=== PATIENT | female | born 1985 | race Caucasian/White ===

== ENCOUNTER 2020-08-16 17:13 | Emergency (ER) | payer OTHER ==
[2020-08-16] MEDS ORDERED: KETOROLAC 30 MG/ML INJ ONE (17:52)
[2020-08-16] MEDS ORDERED: HYDROCODONE/APAP 10/325 TAB ONE (17:52)
--- NOTE | 2020-08-16 18:35 | RAD REPORT ---
EXAM DESCRIPTION: RAD - Ankle Left 3 View - 08/16/2020 6:28 pm CLINICAL HISTORY: PAIN COMPARISON: No comparisons FINDINGS: No acute fracture or dislocation seen.
--- NOTE | 2020-08-16 18:55 | ER ---
Nurse's Notes [facility] Name: Belkys Preston Age: 35 yrs Sex: Female : 1985 Arrival Date: 08/16/2020 Time: 17:16 Bed 20 Private MD: Diagnosis: Fall on same level from slipping, tripping and stumbling without subsequent striking against object;Pain in left ankle and joints of left foot Presentation: 08/16 17:33 Chief complaint: Patient states: was on her knee scooter and somehow fell to the ground sv landing on her left ankle/foot. Pt had Achilles repair surgery 3 weeks ago. c/o pain about an hour ago. Care prior to arrival: Pressure bandage applied. Mechanism of Injury: Fall from standing position. Trauma event details: Injury occurred in the [facility], Injury occurred: at home. Injury occurred: August 16, 2020. 17:33 Acuity: AMY 4 sv 17:33 Method Of Arrival: Wheelchair sv 17:46 Initial Sepsis Screen: Does the patient meet any 2 criteria? No. Patient's initial jd3 sepsis screen is negative. Does the patient have a suspected source of infection? No. Patient's initial sepsis screen is negative. Risk Assessment: Do you want to hurt yourself or someone else? Patient reports no desire to harm self or others. Onset of symptoms was August 16, 2020. 17:47 Coronavirus screen: At this time, the client does not indicate any symptoms associated jd3 with coronavirus-19. Ebola Screen: Patient negative for fever greater than or equal to 101.5 degrees Fahrenheit, and additional compatible Ebola Virus Disease symptoms. Trauma Activation: Not Applicable Physician: ED Physician; Name: ; Notified At: ; Arrived At: Physician: General Surgeon; Name: ; Notified At: ; Arrived At: Physician: Radiology; Name: ; Notified At: ; Arrived At: Physician: Respiratory; Name: ; Notified At: ; Arrived At: Physician: Lab; Name: ; Notified At: ; Arrived At: Historical: - Allergies: 17:35 No Known Allergies; sv - PSHx: 17:35 Novasure; sv - Immunization history:: Client reports having NOT received the Covid vaccine. - Social history:: Smoking status: Patient denies any tobacco usage or history of. Screenin:47 Abuse screen: Denies threats or abuse. Nutritional screening: No deficits noted. jd3 Tuberculosis screening: No symptoms or risk factors identified. Fall Risk Ambulatory Aid- None/Bed Rest/Nurse Assist (0 pts). Gait- Normal/Bed Rest/Wheelchair (0 pts) Mental Status- Oriented to own ability (0 pts). Total Gaffney Fall Scale indicates No Risk (0-24 pts). Assessment: 17:44 General: Appears in no apparent distress. uncomfortable, Behavior is calm, cooperative, jd3 appropriate for age. Pain: Complains of pain in left ankle Quality of pain is described as sharp, shooting, tender. Neuro: Level of Consciousness is awake, alert, obeys commands, Oriented to person, place, time, situation. Cardiovascular: Denies chest pain, Capillary refill < 3 seconds Patient's skin is warm and dry. Respiratory: Airway is patent Respiratory effort is even, unlabored, Respiratory pattern is regular, symmetrical, Denies cough, shortness of breath. GI: No signs and/or symptoms were reported involving the gastrointestinal system. : No signs and/or symptoms were reported regarding the genitourinary system. EENT: No signs and/or symptoms were reported regarding the EENT system. Derm: Skin is intact, Skin is dry, Skin is normal, Skin temperature is warm Bruising that is dark purple, yellow, on left ankle and left foot. Musculoskeletal: Circulation, motion, and sensation intact. Range of motion: limited in left ankle. 18:30 Reassessment: Patient appears in no apparent distress at this time. No changes from jd3 previously documented assessment. Patient and/or family updated on plan of care and expected duration. Pain level reassessed. Patient is alert, oriented x 3, equal unlabored respirations, skin warm/dry/pink. 19:10 Reassessment: Patient appears in no apparent distress at this time. Patient and/or ad5 family updated on plan of care and expected duration. Pain level reassessed. Patient is alert, oriented x 3, equal unlabored respirations, skin warm/dry/pink. Patient states symptoms have improved. Vital Signs: 19:58 BP 103 / 59; Pulse 91; Resp 18 S; Pulse Ox 99% on R/A; ad5 ED Course: 17:16 Patient arrived in ED. rg4 17:17 Rebekah Mckeon FNP-C is [facility]. kb 17:17 Pedro Kaufman MD is Attending Physician. kb 17:25 Niles Martinez, RN is Primary Nurse. jd3 17:35 Triage completed. sv 17:35 Arm band placed on. sv 17:46 Patient has correct armband on for positive identification. Bed in low position. Call jd3 light in reach. Side rails up X 1. Adult w/ patient. Pulse ox on. NIBP on. 18:29 Ankle Left 3 View XRAY In Process Unspecified. EDMS 19:59 No provider procedures requiring assistance completed. Patient did not have IV access ad5 during this emergency room visit. Administered Medications: 17:38 Drug: [place] (HYDROcodone-acetaminophen) 10 mg-325 mg 1 tabs Route: PO; jd3 19:59 Follow up: Response: No adverse reaction; Pain is decreased ad5 17:38 Drug: Ketorolac 30 mg Route: IM; Site: left gluteus; jd3 19:59 Follow up: Response: No adverse reaction ad5 Outcome: 18:54 Discharge ordered by MD. kb 19:59 Discharged to home via wheelchair, with significant other. ad5 19:59 Condition: stable 19:59 Discharge instructions given to patient, Instructed on discharge instructions, follow up and referral plans. medication usage, Demonstrated understanding of instructions, follow-up care, medications, Prescriptions given X 1. 20:00 Patient left the ED. ad5 Signatures: Dispatcher [employer] EDUT Rebekah Mckeon FNP-C FNP-Ckb Verde, Stephanie, RN RN sv Garcia, Rubi rg4 Niles Martinez RN RN Bryce Burgos ad5
--- NOTE | 2020-08-16 18:55 | EDPHYS ---
Physician Documentation [facility] Name: Belkys Preston Age: 35 yrs Sex: Female : 1985 Arrival Date: 08/16/2020 Time: 17:16 Bed 20 Private MD: ED Physician Pedro Kaufman HPI: 08/16 23:22 This 35 yrs old Female presents to ER via Wheelchair with complaints of Fall kb Injury. 23:22 Details of fall: The patient fell from an upright position. Onset: The symptoms/episode kb began/occurred just prior to arrival. Associated injuries: The patient sustained left Achilles. Severity of symptoms: At their worst the symptoms were moderate, in the emergency department the symptoms are unchanged. The patient has not experienced similar symptoms in the past. The patient has been recently seen by a physician:. Pt reports she had an achilles repair 3 weeks ago, had sutures removed today. Was standing using her scooter and somehow fell landing on left ankle. reports pain to posterior left ankle since fall and is concerned that she opened surgical site back up. Historical: - Allergies: 17:35 No Known Allergies; sv - PSHx: 17:35 Novasure; sv - Immunization history:: Client reports having NOT received the Covid vaccine. - Social history:: Smoking status: Patient denies any tobacco usage or history of. ROS: 23:22 Constitutional: Negative for fever, chills, and weight loss. kb 23:22 MS/extremity: Positive for pain, of the left Achilles. 23:22 All other systems are negative. Exam: 23:22 Constitutional: This is a well developed, well nourished patient who is awake, alert, kb and in no acute distress. Head/Face: Normocephalic, atraumatic. ENT: Moist Mucous membranes Respiratory: Respirations even and unlabored. No increased work of breathing, no retractions or nasal flaring. Neuro: Awake and alert, GCS 15, oriented to person, place, time, and situation. Moves all extremities. Normal gait. Psych: Awake, alert, with orientation to person, place and time. Behavior, mood, and affect are within normal limits. 23:22 Musculoskeletal/extremity: Extremities: grossly normal except: noted in the left Achilles: pain, tenderness, ROM: limited active range of motion due to pain, Circulation is intact in all extremities. Sensation intact. Weight bearing: is unable to bear weight, ROM limited due to recent surgery, still nonweightbearing since recent surgery. 23:22 Skin: surgical incision to posterior left ankle that is intact. Steri-strips in place. Vital Signs: 19:58 BP 103 / 59; Pulse 91; Resp 18 S; Pulse Ox 99% on R/A; ad5 MDM: 17:20 Patient medically screened. kb 18:42 Data reviewed: vital signs, nurses notes. Data interpreted: Pulse oximetry: on room air kb is 100 %. Interpretation: normal. Counseling: I had a detailed discussion with the patient and/or guardian regarding: the historical points, exam findings, and any diagnostic results supporting the discharge/admit diagnosis, radiology results, the need for outpatient follow up, a orthopedic surgeon, to return to the emergency department if symptoms worsen or persist or if there are any questions or concerns that arise at home. ED course: Pt educated to follow up with her surgeon. Verbal understanding received. . 08/16 17:29 Order name: Ankle Left 3 View XRAY; Complete Time: 18:42 kb 08/16 18:54 Order name: Maco Wrap; Complete Time: 19:59 kb Administered Medications: 17:38 Drug: [place] (HYDROcodone-acetaminophen) 10 mg-325 mg 1 tabs Route: PO; jd3 19:59 Follow up: Response: No adverse reaction; Pain is decreased ad5 17:38 Drug: Ketorolac 30 mg Route: IM; Site: left gluteus; jd3 19:59 Follow up: Response: No adverse reaction ad5 Disposition Summary: 08/16/20 18:54 Discharge Ordered Location: Home kb Condition: Stable kb Diagnosis - Fall on same level from slipping, tripping and stumbling without subsequent kb striking against object - Pain in left ankle and joints of left foot kb Followup: kb - With: Private Physician - When: 2 - 3 days - Reason: Recheck today's complaints, Continuance of care, Re-evaluation by your physician Followup: kb - With: Emergency Department - When: As needed - Reason: Worsening of condition Discharge Instructions: - Discharge Summary Sheet kb - Musculoskeletal Pain kb - Ankle Pain kb Forms: - Medication Reconciliation Form kb - Thank You Letter kb - Antibiotic Education kb - Prescription Opioid Use kb Prescriptions: - Diclofenac Sodium 75 mg Oral tablet,delayed release (DR/EC) - take 1 tablet by ORAL route 2 times per day As needed; 30 tablet; Refills: 0, kb Product Selection Permitted Addendum: 08/20/2020 07:29 Co-signature as Attending Physician, Pedro Kaufman MD. r n Signatures: Dispatcher [employer] Rebekah Rivera, YASMANY MONTAÑO-Renata Cary RN RN sv Nieto, Roman, MD MD rn Davies, Jonathon, RN RN jd3 Davidson, Andrea ad5
[2020-08-16 20:07] VITALS: BP 103/59; O2SAT 99
== END 2020-08-16 20:00 | disposition home or self-care (01) ==
LOC: ER 17:13
DX: M25.572 Pain in left ankle and joints of left foot (principal); W01.198A Fall on same level from slipping, tripping and stumbling with subsequent striking against other object, initial encounter
CPT/HCPCS: 96372; 99283

== ENCOUNTER → 2023-03-15 | Emergency (ER) | payer OTHER ==
[~2023-03-15] MED LIST: AMOX/K CLAV 875 MG TAB ONE; LIDOCAINE 1% 20 ML MDV ONE; TDAP (DIPHTH,PERTUSS(ACELL),TET VAC) 0.5 ML VIAL IMVAC ONE
--- NOTE | 2023-03-15 16:02 | RAD REPORT ---
EXAM DESCRIPTION: RAD - Hand Right 3 View - 03/15/2023 3:28 pm CLINICAL HISTORY: Right hand pain status post injury FINDINGS: No fracture or dislocation is seen. A radiopaque foreign body is not seen
--- NOTE | 2023-03-15 16:58 | EDPHYS ---
Physician Documentation [facility] Name: Belkys Preston Age: 38 yrs Sex: Female : 1985 Arrival Date: 03/15/2023 Time: 13:05 Bed 10 Private MD: ED Physician Viridiana Westbrook HPI: 03/15 15:14 This 38 yrs old Female presents to ER via Ambulatory with complaints of Laceration To snw Hand - Right middle finger, Dog Bite. 15:14 The patient has a laceration related to: a dog bite. occurred at home, and there are no snw complicating factors. The injury was animals fighting. The laceration(s) is(are) located on the palmar aspect of proximal phalanx of right middle finger and dorsal aspect of middle phalanx of right middle finger. Onset: The symptoms/episode began/occurred suddenly, just prior to arrival. The patient has not experienced similar symptoms in the past. animals are vaxed and known. CHILD CARE EDUCATION COORDINATOR: 15:27 LMP 02/23/2023, unknown tl4 Historical: - Allergies: 15:25 No Known Allergies; tl4 - Home Meds: 15:25 None [Active]; tl4 - PMHx: 15:25 None; tl4 - Immunization history:: Adult Immunizations unknown. - Social history:: Smoking status: Patient denies any tobacco usage or history of. ROS: 15:13 Constitutional: Negative for fever, chills, and weight loss, Eyes: Negative for injury, snw pain, redness, and discharge, ENT: Negative for injury, pain, and discharge, Neck: Negative for injury, pain, and swelling, Cardiovascular: Negative for chest pain, palpitations, and edema, Respiratory: Negative for shortness of breath, cough, wheezing, and pleuritic chest pain, Abdomen/GI: Negative for abdominal pain, nausea, vomiting, diarrhea, and constipation, Back: Negative for injury and pain, : Negative for injury, bleeding, discharge, and swelling, MS/Extremity: Negative for injury and deformity, Neuro: Negative for headache, weakness, numbness, tingling, and seizure, Psych: Negative for depression, anxiety, suicide ideation, homicidal ideation, and hallucinations, 15:13 Skin: Positive for laceration(s), of the palmar aspect of proximal phalanx of right middle finger and dorsal aspect of middle phalanx of right middle finger, Exam: 15:12 Constitutional: This is a well developed, well nourished patient who is awake, alert, snw and in no acute distress. Head/Face: Normocephalic, atraumatic. Eyes: Pupils equal round and reactive to light, extra-ocular motions intact. Lids and lashes normal. Conjunctiva and sclera are non-icteric and not injected. Cornea within normal limits. Periorbital areas with no swelling, redness, or edema. ENT: Nares patent. No nasal discharge, no septal abnormalities noted. Tympanic membranes are normal and external auditory canals are clear. Oropharynx with no redness, swelling, or masses, exudates, or evidence of obstruction, uvula midline. Mucous membranes moist. Neck: Trachea midline, no thyromegaly or masses palpated, and no cervical lymphadenopathy. Supple, full range of motion without nuchal rigidity, or vertebral point tenderness. No Meningismus. Chest/axilla: Normal chest wall appearance and motion. Nontender with no deformity. No lesions are appreciated. Cardiovascular: Regular rate and rhythm with a normal S1 and S2. No gallops, murmurs, or rubs. Normal PMI, no JVD. No pulse deficits. Respiratory: Lungs have equal breath sounds bilaterally, clear to auscultation and percussion. No rales, rhonchi or wheezes noted. No increased work of breathing, no retractions or nasal flaring. Abdomen/GI: Soft, non-tender, with normal bowel sounds. No distension or tympany. No guarding or rebound. No evidence of tenderness throughout. Back: No spinal tenderness. No costovertebral tenderness. Full range of motion. MS/ Extremity: Pulses equal, no cyanosis. Neurovascular intact. Full, normal range of motion. Neuro: Awake and alert, GCS 15, oriented to person, place, time, and situation. Cranial nerves II-XII grossly intact. Motor strength 5/5 in all extremities. Sensory grossly intact. Cerebellar exam normal. Normal gait. Psych: Awake, alert, with orientation to person, place and time. Behavior, mood, and affect are within normal limits. 15:12 Skin: Appearance: normal except for affected area, injury, bite(s), superficial, of the dorsal aspect of middle phalanx of right middle finger and palmar aspect of proximal phalanx of right middle finger, Vital Signs: 13:19 BP 146 / 85; Pulse 99; Resp 16; Temp 98.4(O); Pulse Ox 99% on R/A; Weight 81.65 kg; hb Height 5 ft. 7 in. ; Pain 4/10; 17:38 BP 125 / 74; Pulse 84; Resp 16; Pulse Ox 98% on R/A; tl4 13:19 Body Mass Index 28.19 (81.65 kg, 170.18 cm) hb 13:19 Pain Scale: Adult hb Laceration: 16:52 Wound Repair of 1.5cm ( 0.6in ) subcutaneous laceration to dorsal aspect of middle snw phalanx of right middle finger. Linear shaped.. Distal neuro/vascular/tendon intact. Anesthesia: Local anesthetic administered with 2 mls of 1% lidocaine. Wound prep: Moderate cleansing with hibiclenz. Skin closed with 3 5-0 Prolene using simple sutures and sterile technique. Dressed with non-adherent dressing. Patient tolerated well. MDM: 15:01 Patient medically screened. snw 15:15 Differential diagnosis: superficial laceration. Data reviewed: vital signs, nurses snw notes. I considered the following discharge prescriptions or medication management in the emergency department Medications were administered in the Emergency Department. See MAR. Counseling: I had a detailed discussion with the patient and/or guardian regarding the historical points, exam findings, and any diagnostic results supporting the discharge/admit diagnosis, the need for outpatient follow up, for definitive care. Response to treatment: There is no appreciated change of the patient's symptoms at this time. 03/15 14:07 Order name: Hand Right 3 View XRAY; Complete Time: 16:07 snw 03/15 15:01 Order name: Misc. Order: consult animal control; Complete Time: 15:53 snw 03/15 15:01 Order name: Wound Care: hibiclens; Complete Time: 15:21 snw 03/15 15:01 Order name: Suture Tray Setup; Complete Time: 15:21 snw Administered Medications: 15:21 Drug: Tetanus Toxoid,Adsorbed IM 0.5 ml IM once; Provide Vaccine Information Statement tl4 (VIS). {Business Continuity Management Director: Joust; Exp: ThuJul 01 2024; Lot #: [id number]; Series: 1 of 1; Patient Consent: Obtained; Date/Time: ; Source Name: Belkys Preston; Source Relationship: Self; Address Information: [facility] [address], [facility] [address]; ; Education: Provided; VIS Presented Date: ; VIS Publication: Tetanus/Diphtheria (Td) Vaccine VIS 05/20/2016 (historic)} {Note: VIS publication 09/14/2020.} Route: IM; Site: left deltoid; 17:31 Follow up: Response: No adverse reaction tl4 15:21 Drug: Amoxicillin-Clavulanate PO 875 mg PO once Route: PO; tl4 17:30 Follow up: Response: No adverse reaction tl4 17:31 Drug: Lidocaine Infiltration (1 %) 20 ml 20 ml Infiltration once; to bedside {Note: tl4 given by DANYEL Thomas.} Volume: 20 ml; Route: Infiltration; 17:31 Follow up: Response: No adverse reaction tl4 Disposition Summary: 03/15/23 16:57 Discharge Ordered Notes: Location: Home snw Condition: Stable snw Diagnosis - Bitten by dog snw - Laceration without foreign body of finger without damage to nail snw Followup: snw - With: Private Physician - When: 7 - 10 days - Reason: Recheck today's complaints, Continuance of care, Re-evaluation by your physician Followup: snw - With: Emergency Department - When: 7 - 10 days - Reason: Staple/Suture removal Discharge Instructions: - Discharge Summary Sheet snw - Laceration Care, Adult snw - Animal Bite, Adult snw - Form - Blood Pressure Record Sheet snw - How to Take Your Blood Pressure snw Forms: - Medication Reconciliation Form snw - Thank You Letter snw - Antibiotic Education snw - Prescription Opioid Use snw - Patient Portal Instructions snw - Leadership Thank You Letter snw Prescriptions: - Augmentin 875-125 mg Oral Tablet - take 1 tablet ORAL route every 12 hours for 10 days; 20 tablet; Refills: 0, snw Product Selection Permitted - Mobic 7.5 mg Oral Tablet - take 1 tablet ORAL route once daily take with food; 20 tablet; Refills: 0, snw Product Selection Permitted Signatures: Dispatcher [employer] EDMS Coni, Irasema, MESMERIST-C MESMERIST-Csnw LogAamir brock tl4 Corrections: (The following items were deleted from the chart) 15:25 15:25 PSHx: Novasure; tl4 tl4
--- NOTE | 2023-03-15 16:58 | ER ---
Nurse's Notes [facility] Name: Belkys Preston Age: 38 yrs Sex: Female : 1985 Arrival Date: 03/15/2023 Time: 13:05 Bed 10 Private MD: Diagnosis: Bitten by dog;Laceration without foreign body of finger without damage to nail Presentation: 03/15 13:19 Chief complaint: Right middle finger laceration from family dog. Pt was attempting to hb break up her dogs fighting. Vaccinations up to date. Coronavirus screen: At this time, the client does not indicate any symptoms associated with coronavirus-19. Ebola Screen: No symptoms or risks identified at this time. Complicating Factors: The laceration was a result of a dog bite. Initial Sepsis Screen: Does the patient meet any 2 criteria? No. Patient's initial sepsis screen is negative. Does the patient have a suspected source of infection? No. Patient's initial sepsis screen is negative. Risk Assessment: Do you want to hurt yourself or someone else? Patient reports no desire to harm self or others. Onset of symptoms was March 15, 2023. 13:19 Method Of Arrival: Ambulatory hb 13:19 Acuity: AMY 4 hb Triage Assessment: 15:23 General: Appears in no apparent distress. Behavior is calm, cooperative. Pain: tl4 Complains of pain in right hand. EENT: No deficits noted. No signs and/or symptoms were reported regarding the EENT system. Neuro: No deficits noted. Cardiovascular: No deficits noted. Respiratory: No deficits noted. GI: No deficits noted. No signs and/or symptoms were reported involving the gastrointestinal system. : No deficits noted. No signs and/or symptoms were reported regarding the genitourinary system. Derm: No deficits noted. No signs and/or symptoms reported regarding the dermatologic system. Injury Description: Laceration sustained to right hand is clean, not bleeding. WET WHEELER: 15:27 LMP 02/23/2023, unknown tl4 Historical: - Allergies: 15:25 No Known Allergies; tl4 - Home Meds: 15:25 None [Active]; tl4 - PMHx: 15:25 None; tl4 Historical Immunization: - Administered Vaccines 17:31 Lidocaine Infiltration (1 %) 20 ml tl4 15:21 Tetanus Toxoid,Adsorbed IM 0.5 ml tl4 Finished Carpet Inspector: [email or web address]; Exp: ThuJul 01 2024; Lot #: [id number]; Series: 1 of 1; Patient Consent: Obtained; Date/Time: ; Source Name: Belkys Preston; Source Relationship: Self; Address Information: [address], [facility] [address]; ; Education: Provided; VIS Presented Date: ; VIS Publication: Tetanus/Diphtheria (Td) Vaccine VIS 05/20/2016 (historic) 15:21 Amoxicillin-Clavulanate PO 875 mg tl4 - Immunization history:: Adult Immunizations unknown. - Social history:: Smoking status: Patient denies any tobacco usage or history of. Screenin:26 [facility] ED Fall Risk Assessment (Adult) History of falling in the last 3 months, tl4 including since admission No falls in past 3 months (0 pts) Confusion or Disorientation No (0 pts) Intoxicated or Sedated No (0 pts) Impaired Gait No (0 pts) Mobility Assist Device Used No (0 pt) Altered Elimination No (0 pt) Score/Fall Risk Level 0 - 2 = Low Risk Oriented to surroundings, Maintained a safe environment, Educated pt \T\ family on fall prevention, incl call for assistance when getting out of bed, Assessed \T\ reinforced patient's understanding of fall precautions, Provided non-skid footwear, Hourly rounding (assess needs \T\ fall precautionary measures) done, Used ambulatory aids as needed (educated on \T\ assisted with), Used gait belt as appropriate. Abuse screen: Denies threats or abuse. Denies injuries from another. Nutritional screening: No deficits noted. Tuberculosis screening: No symptoms or risk factors identified. Assessment: 15:24 Pain: Complains of pain in right hand. Musculoskeletal: Circulation, motion, and tl4 sensation intact. Capillary refill < 3 seconds, Range of motion: intact in all extremities, Reports pain in right hand. 15:52 Reassessment: [facility] contacted. Report of dog bite given. Dispatcher states she tl4 will contact animal control. Dispatcher states she will call back if she needs any additional information. 16:36 Reassessment: No changes from previously documented assessment. Patient and/or family tl4 updated on plan of care and expected duration. Pain level reassessed. Patient is alert, oriented x 3, equal unlabored respirations, skin warm/dry/pink. 17:31 Reassessment: No changes from previously documented assessment. Patient and/or family tl4 updated on plan of care and expected duration. Pain level reassessed. Patient is alert, oriented x 3, equal unlabored respirations, skin warm/dry/pink. Pt to follow up with [facility] lab animal technician [place] tomorrow between [id number]. Vital Signs: 13:19 BP 146 / 85; Pulse 99; Resp 16; Temp 98.4(O); Pulse Ox 99% on R/A; Weight 81.65 kg; hb Height 5 ft. 7 in. ; Pain 4/10; 17:38 BP 125 / 74; Pulse 84; Resp 16; Pulse Ox 98% on R/A; tl4 13:19 Body Mass Index 28.19 (81.65 kg, 170.18 cm) hb 13:19 Pain Scale: Adult hb ED Course: 13:07 Patient arrived in ED. im 13:21 Triage completed. hb 13:38 Irasema Newberry FNP-C is PHCP. snw 13:38 Viridiana Westbrook MD is Attending Physician. snw 14:58 Aamir Blair is Primary Nurse. tl4 15:24 Arm band placed on Patient placed in an exam room, on a stretcher. tl4 15:26 Patient has correct armband on for positive identification. Bed in low position. Call tl4 light in reach. Side rails up X 1. Provided Education on: ed process. 15:26 Wound care: to dog bite located on right hand was cleaned with Hibiclens, Patient tl4 tolerated well. 15:27 No provider procedures requiring assistance completed. Patient did not have IV access tl4 during this emergency room visit. 15:30 Hand Right 3 View XRAY In Process Unspecified. EDMS 17:38 Dressings: 4X4s X 1; right hand. tl4 Administered Medications: 15:21 Drug: Tetanus Toxoid,Adsorbed IM 0.5 ml IM once; Provide Vaccine Information Statement tl4 (VIS). {Finished Carpet Inspector: VAZATA; Exp: ThuJul 01 2024; Lot #: [id number]; Series: 1 of 1; Patient Consent: Obtained; Date/Time: ; Source Name: Belkys Preston; Source Relationship: Self; Address Information: [address] [place] [address], [facility] [address]; ; Education: Provided; VIS Presented Date: ; VIS Publication: Tetanus/Diphtheria (Td) Vaccine VIS 05/20/2016 (historic)} {Note: VIS publication 09/14/2020.} Route: IM; Site: left deltoid; 17:31 Follow up: Response: No adverse reaction tl4 15:21 Drug: Amoxicillin-Clavulanate PO 875 mg PO once Route: PO; tl4 17:30 Follow up: Response: No adverse reaction tl4 17:31 Drug: Lidocaine Infiltration (1 %) 20 ml 20 ml Infiltration once; to bedside {Note: tl4 given by DANYEL Thomas.} Volume: 20 ml; Route: Infiltration; 17:31 Follow up: Response: No adverse reaction tl4 Medication: 15:26 Vaccine Information Statement (VIS) provided today. Questions and/or concerns tl4 addressed. VIS edition date: September 14, 2020. Outcome: 16:57 Discharge ordered by snw 17:38 Discharged to home ambulatory, with family, tl4 17:38 Condition: good 17:38 Discharge instructions given to patient, Instructed on discharge instructions, follow up and referral plans. medication usage, wound care, Demonstrated understanding of instructions, follow-up care, medications, wound care, Prescriptions given X 2, 17:39 Patient left the ED. tl4 Signatures: Dispatcher [employer] EDMS Irasema Newberry, PAULAC DANYEL-Lizbeth Yang RN RN hb Mendoza, Itzel im Logdahl, Toni tl4 Corrections: (The following items were deleted from the chart) 15:25 15:25 PSHx: Novasure; tl4 tl4
[2023-03-15 20:23] VITALS: BP 125/74; TEMP 98.4; O2SAT 98
== END ==
LOC: ER 13:05
PROC: 0HQFXZZ Repair Right Hand Skin, External Approach (ICD-10-PCS; principal; 2023-03-15)
DX: S61.212A Laceration without foreign body of right middle finger without damage to nail, initial encounter (principal); W54.0XXA Bitten by dog, initial encounter; Z23 Encounter for immunization
CPT/HCPCS: 73130; 90471; 12001; J2001